=== PATIENT | female | born 1985 | race Hispanic/Latino ===

== ENCOUNTER → 2017-06-16 | Outpatient (CLI) | payer BC ==
[~2017-06-16] MED LIST: CEPH500C PO; IBUP-1773 PO; PREN1TAB19 PO
--- NOTE | 2017-06-16 16:05 | Diagnostic Imaging Report ---
INDICATION: anatomical evaluation. TECHNIQUE: Multiple real-time grayscale images were obtained over the gravid uterus. COMPARISON: None. FINDINGS: Cervical length is 4.4 cm. Fetus is currently in a cephalic presentation. Normal amount of amniotic fluid is present. The placenta is along the fundal left aspect of the uterus. No evidence for previa. cardiac activity at 155 beats per minute. Visualized anatomical structures are unremarkable. The spine however is not well demonstrated on the current study. Biometrical measurements are as follows: Biparietal 4.85 cm, age 20 weeks 5 days. Head circumference 18.02 cm, age 20 weeks 4 days. Abdominal circumference 16.31 cm, age 21 weeks 3 days. Femur length 3.55 cm, age 21 weeks 2 days. Sonographic estimate age: 21 weeks 0 days. Sonographic estimated date of delivery: 10-27-17. Estimated Weight: 406 gm (+/- 59 gm). LMP percentile: 94%. heart rate: 155 beats per minute. number: 1 of 1. IMPRESSION: Single viable intrauterine in a cephalic presentation. Sonographically estimated age is 21 weeks 0 days for an estimated date of delivery of October 27, 2017. No abnormalities are noted at this time. However, the spine cannot be well demonstrated. Dictated by: Dictated on workstation # [id number]
== END ==
LOC: RAD 13:16
PROVIDERS: ATTEND Family Medicine
DX: Z36 Encounter for antenatal screening of mother (principal); Z3A.21 21 weeks gestation of pregnancy
CPT/HCPCS: 76805

== ENCOUNTER 2017-10-30 19:02 | Inpatient (IN) | payer BC ==
[~2017-10-30] VITALS: Ht 152.4 cm; Wt 71.0 kg
[2017-10-30 19:23] VITALS: BP 110/73
[2017-10-30] MEDS ORDERED: MINERAL OIL CONCENTRATE 99.9% 15 ML UDC TOP PRN (19:30)
[2017-10-30] MEDS: D5 LR IV SOLUTION 1,000 ML IV SCH (19:45)
[2017-10-30 19:57] LABS: BASOPHILS % (AUTO) 0 % (0-10); EOSINOPHILS # (AUTO) 0.1 10^3/uL (0.0-0.3); EOSINOPHILS % (AUTO) 1 % (0-10); HEMATOCRIT 38 % (35-52); HEMOGLOBIN 12.9 G/DL (11.5-16.0); LYMPHOCYTES % (AUTO) 25 % (12-44); MEAN CORPUSCULAR HEMOGLOBIN 29 PG (25-34); MEAN CORPUSCULAR HGB CONC 34 G/DL (32-36); MEAN CORPUSCULAR VOLUME 86 FL (80-99); MEAN PLATELET VOLUME 12.5 FL (7.4-10.4); MONOCYTES # (AUTO) 0.5 X 10^3 (0.0-1.0); MONOCYTES % (AUTO) 6 % (0-12); NEUTROPHILS # (AUTO) 5.5 X 10^3 (1.8-7.8); NEUTROPHILS % (AUTO) 68 % (42-75); PLATELET COUNT 220 10^3/uL (130-400); RED BLOOD COUNT 4.43 10^6/uL (4.35-5.85); RED CELL DISTRIBUTION WIDTH 13.9 % (10.0-14.5); WHITE BLOOD COUNT 8.1 10^3/uL (4.3-11.0)
[2017-10-30] MEDS ORDERED: BUTORPHANOL INJ 2 MG/ML (STADOL) VIAL IV PRN (20:15)
[2017-10-30] MEDS ORDERED: DINOPROSTONE 10 MG (CERVIDIL) INSERT ONE (20:20)
[2017-10-30 20:28] VITALS: BP 109/67
[2017-10-30] MEDS ORDERED: DINOPROSTONE 10 MG (CERVIDIL) INSERT PV ONE (20:30)
[2017-10-30] MEDS ORDERED: CATHETER FLUSH 10 ML SYR IV SCH (22:00)
[2017-10-31] VITALS (14 sets, daily range): BP systolic 93–135; BP diastolic 57–72
[2017-10-31] MEDS: D5 LR IV SOLUTION 1,000 ML IV SCH ×2 (03:41→11:30)
--- NOTE | 2017-10-31 09:27 | History & Physical-OB ---
OB - Chief Complaint & HPI Date/Time Date of Admission: Date of Admission: Oct 30, 2017 at 7:15 pm Time Seen by Provider: 08:45 Chief Complaint/History OB-Reason for Admission/Chief: Induction of Labor Hx : 6 Hx Para: 3023 Expected Date of Delivery: Nov 02, 2017 Gestational Age in Weeks: 39 Gestational Age in Days: 5 History of Labs A pos, Hep B neg, RI, HIV neg, RPR NR, GC/chlamydia neg, GBS neg, 1 hour glucola nml. Allergies and Home Medications Allergies Coded Allergies: No Known Drug Allergies (Unverified , 12/22/10) Home Medications Vit/Iron Fumarate/FA 1 Each Tablet, 1 EACH PO DAILY, (Reported) OB - History Hx of Present Care: Yes Obstetrical Complications: None Medical Complications: None Obstetrical History Hx : 6 Hx Para: 3 Hx # Term Pregnancies: 3 Hx # Pregnancies: 0 Number of Living Children: 3 Hx Termination: No Hx Total # of Abortions (Spona: 2 Hx Multiple Gestation: No Hx Ectopic : No Hx Stillbirth: No Hx Complication: No Hx Induced Hypertens: No Hx Maternal Gestational Diabet: No Hx Hemorrhage: No Delivery History Hx Dystocia: No Hx Forceps Assisted Delivery: No Hx Vacuum Extraction Assisted: No Hx Placenta Abnormality: No Hx Distress: No Hx Large For Gestational Age I: No Hx Small for Gestational Age I: No Hx Section: No Hx Vaginal Delivery Post C-Sec: No Hx Blood Disorders: No Adverse Rxn to Tranfusion: No Patient Past Medical History Denies PMH/PSH Social History/Family History HIV/AIDS: No Recent Infectious Disease Expo: No Sexually Transmitted Disease: No Alcohol Use: Denies Use Recreational Drug Use: No Smoking Cessation: Never smoker Immunizations Hepatitis A: No Hepatitis B: No Tetanus Booster (TDap): Less than 5yrs Date of Influenza Vaccine: Jun 29, 2015 Rubella: immune RPR/VDRL: Negative GBS Status: Negative HBsAG: Negative OB - Admission Exam Physical Exam Vitals: Vital Signs 10/31/17 08:00 Temp 96.8 Pulse 79 Resp 18 B/P (MAP) 106/69 (81) O2 Delivery Room Air HEENT: NCAT Extremities: Other (varicosities) Cervical Dilatation: 7cm Effacement: 50% Station: -2 Membranes: Ruptured Amniotic Fluid: Clear Heart Rate: 140's Decelerations: Variable Decelerations Short Term Variability: Present Environmental Education Specialist Variability: Average (6-25) Labs Laboratory Tests Test 10/30/17 19:45 Range/Units White Blood Count 8.1 4.3-11.0 10^3/uL Red Blood Count 4.43 4.35-5.85 10^6/uL Hemoglobin 12.9 11.5-16.0 G/DL Hematocrit 38 35-52 % Mean Corpuscular Volume 86 80-99 FL Mean Corpuscular Hemoglobin 29 25-34 PG Mean Corpuscular Hemoglobin Concent 34 32-36 G/DL Red Cell Distribution Width 13.9 10.0-14.5 % Platelet Count 220 130-400 10^3/uL Mean Platelet Volume 12.5 H 7.4-10.4 FL Neutrophils (%) (Auto) 68 42-75 % Lymphocytes (%) (Auto) 25 12-44 % Monocytes (%) (Auto) 6 0-12 % Eosinophils (%) (Auto) 1 0-10 % Basophils (%) (Auto) 0 0-10 % Neutrophils # (Auto) 5.5 1.8-7.8 X 10^3 Lymphocytes # (Auto) 2.0 1.0-4.0 X 10^3 Monocytes # (Auto) 0.5 0.0-1.0 X 10^3 Eosinophils # (Auto) 0.1 0.0-0.3 10^3/uL Basophils # (Auto) 0.0 0.0-0.1 10^3/uL OB - Assessment/Plan/Diagnosis Assessment Assessment: induction of labor Plan Plan: Induction Induction Method: other (Cervidil placed last night per Dr. Loera plansDr. Loera out today, cervidil removed and advanced cervical dilation noted, will manage expectantly for now) LENCHO COMER MD Oct 31, 2017 9:27 am
[2017-10-31] MEDS ORDERED: OXYTOCIN/NORMAL SALINE 500 ML IV ONE (09:55)
[2017-10-31] MEDS ORDERED: MISOPROSTOL 200 MCG (CYTOTEC) TABLET ONE (10:10)
[2017-10-31] MEDS ORDERED: MISOPROSTOL 200 MCG (CYTOTEC) TABLET PO NR (10:15)
--- NOTE | 2017-10-31 10:22 | OB Labor & Delivery Record ---
Vag Delivery Note Vag Delivery Note Date of Delivery: 10/31/17 Preoperative Diagnosis: Marcos Rothman is a 32 yo /Para 6 / 3, Gestational Age (wks)39with 5 days Postoperative Diagnosis: Same Surgeon: LENCHO COMER Anesthesia: none Delivery Type: spontaneous vaginal delivery Findings: Viable female infant, apgars 9/9, weight 7#11 Lacerations: bilateral periurethral abrasions Intact placenta with 3 vessel cord. No nuchal cord, body cord or shoulder dystocia Cytotec 800 mcg placed for hemorrhage prophylaxis Estimated Blood Loss: 350 ml Complications: None Condition: Stable Description of Procedure: The patient is a who presented for IOL for approaching postdates. She was admitted and informed consent was obtained. Her labor course was unremarkable. She progressed to complete dilatation and began to push. She was then set up for delivery. The 's head was delivered atraumatically in the YANNA position. The shoulders and remainder of the 's body were then delivered without difficulty. Upon delivery, the infant was vigorous and placed on maternal abdomen. The cord was doubly clamped and cut and the infant was placed skin to skin with mother. An intact placenta with 3- vessel cord delivered via [place] and there was found to be moderate bleeding.~ Vigorous fundal massage was performed and the fundus was found to be boggy. IV oxytocin was given. Cytotec 800 mcg rectally given and fundus firm afterward with no bleeding. Examination of the vagina and perineum revealed a bilateral periurethral abrasion. Mom and baby were both in stable condition in the labor suite. Vitals - Labs Vital Signs - I&O Vital Signs Date Time Temp Pulse Resp B/P (MAP) Pulse Ox O2 Delivery O2 Flow Rate FiO2 10/31/17 08:00 96.8 79 18 106/69 (81) Room Air 10/31/17 03:45 96.8 74 18 102/61 (75) Room Air 10/31/17 00:33 98.4 79 18 108/65 (79) Room Air 10/30/17 20:28 97.6 83 18 109/67 (81) Room Air 10/30/17 19:23 86 18 110/73 (85) Room Air I & O 10/31/17 07:00 Intake Total 1200 ml Balance 1200 ml Labs Laboratory Tests 1/29/18 19:45: White Blood Count 8.1, Red Blood Count 4.43, Hemoglobin 12.9, Hematocrit 38, Mean Corpuscular Volume 86, Mean Corpuscular Hemoglobin 29, Mean Corpuscular Hemoglobin Concent 34, Red Cell Distribution Width 13.9, Platelet Count 220, Mean Platelet Volume 12.5H, Neutrophils (%) (Auto) 68, Lymphocytes (%) (Auto) 25 , Monocytes (%) (Auto) 6, Eosinophils (%) (Auto) 1, Basophils (%) (Auto) 0, Neutrophils # (Auto) 5.5, Lymphocytes # (Auto) 2.0, Monocytes # (Auto) 0.5, Eosinophils # (Auto) 0.1, Basophils # (Auto) 0.0 LENCHO COMER MD Oct 31, 2017 10:22 am
[2017-10-31] MEDS ORDERED: OXYTOCIN/NORMAL SALINE 500 ML IV SCH (11:06)
[2017-10-31] MEDS ORDERED: TETANUS,DIPTH,PERTUSS P/F (BOOSTRIX) 0.5 ML VIAL IM ONE (11:15)
[2017-10-31] MEDS ORDERED: MEASLES,MUMPS,RUBELLA 1 EA INJ SQ ONE (11:15)
[2017-10-31] MEDS: IBUPROFEN 600 MG (MOTRIN) TAB PO SCH (11:40)
[2017-10-31] MEDS ORDERED: CATHETER FLUSH 10 ML SYR IV SCH (14:00)
[2017-11-01] MEDS: IBUPROFEN 600 MG (MOTRIN) TAB PO SCH ×4 (00:08→13:25)
[2017-11-01 04:40] VITALS: BP 96/56
[2017-11-01 06:25] LABS: BASOPHILS % (AUTO) 0 % (0-10); EOSINOPHILS # (AUTO) 0.1 10^3/uL (0.0-0.3); EOSINOPHILS % (AUTO) 1 % (0-10); HEMATOCRIT 40 % (35-52); HEMOGLOBIN 13.4 G/DL (11.5-16.0); LYMPHOCYTES # (AUTO) 2.8 X 10^3 (1.0-4.0); LYMPHOCYTES % (AUTO) 25 % (12-44); MEAN CORPUSCULAR HEMOGLOBIN 29 PG (25-34); MEAN CORPUSCULAR HGB CONC 34 G/DL (32-36); MEAN CORPUSCULAR VOLUME 86 FL (80-99); MEAN PLATELET VOLUME 12.6 FL (7.4-10.4); MONOCYTES # (AUTO) 0.8 X 10^3 (0.0-1.0); MONOCYTES % (AUTO) 7 % (0-12); NEUTROPHILS # (AUTO) 7.4 X 10^3 (1.8-7.8); NEUTROPHILS % (AUTO) 67 % (42-75); PLATELET COUNT 205 10^3/uL (130-400); RED BLOOD COUNT 4.61 10^6/uL (4.35-5.85); RED CELL DISTRIBUTION WIDTH 14.1 % (10.0-14.5); WHITE BLOOD COUNT 11.1 10^3/uL (4.3-11.0)
[2017-11-01 08:00] VITALS: BP_SYST 2; BP_SYST 92; BP_DIAS 60
[2017-11-01] MEDS ORDERED: IBUP-1773 PO (09:41)
--- NOTE | 2017-11-01 09:45 | Discharge Instructions ---
Discharge Inst-Women's Serv Depart Medications New, Converted or Re-Newed RX: Transmitted to Pharmacy New Medications: Ibuprofen (Ibuprofen) 600 Mg Tablet 600 MG PO Q6H PRN for PAIN-MILD TO MODERATE, #60 TAB Continued Medications: Vit/Iron Fumarate/FA ( Vitamins Tablet) 1 Each Tablet 1 EACH PO DAILY, TAB Follow Up/Instructions Goal/Follow Up: Follow up with Dr. Loera in 6 weeks for visit. Activity Activity: Activity as Tolerated (avoid strenuous activity x 6 weeks) Driving Instructions: You May Drive Nothing Inside Vagina: No Douching, No [place], No Tampons Diet Discharge Diet: No Restrictions Symptoms to Report to : Swelling Increased, Fever Over 101 Degrees F, Pain/ Pressure in Chest, Pain/Pressure in Jaw, Vaginal Bleeding Increase, Cramps in Feet or Legs, Vaginal Discharge Foul, Dizziness/Fainting, Shortness of Breath For Any Problems or Questions: Contact Your Physician Copies To 1: KALANI LOERA MD, BETHANY N MD Nov 01, 2017 09:45
[2017-11-01 12:00] VITALS: BP 101/70
[2017-11-01] MEDS ORDERED: TETANUS,DIPTH,PERTUSS P/F (BOOSTRIX) 0.5 ML VIAL IM ONE (13:19)
--- NOTE | 2017-11-01 14:06 | Discharge Summary ---
Diagnosis/Chief Complaint Date of Admission Oct 30, 2017 at 7:15 pm Date of Discharge Nov 01, 2017 Admission Diagnosis Admission Diagnosis Term intrauterine at 39 weeks Induction of labor Discharge Diagnosis s/p spontaneous vaginal delivery at 39 weeks with no lacerations uncomplicated course Chief Complaint/HPI Chief Complaint/HPI 32 yo G6 now [id number] admitted for IOL at 39w4d for approaching postdates. Discharge Summary-Simple/Stand Procedures spontaneous vaginal delivery Discharge Physical Examination Allergies: Coded Allergies: No Known Drug Allergies (Unverified , 12/22/10) Vitals & I&Os Vital Sign - Last 12Hours Date Time Temp Pulse Resp B/P (MAP) Pulse Ox O2 Delivery O2 Flow Rate FiO2 11/01/17 12:00 97.8 77 18 101/70 (80) 98 Room Air General Appearance: Alert, No Acute Distress HEENT: Atraumatic Respiratory: Clear to Auscultation, Normal Air Movement Cardiovascular: Regular Rate, No Murmurs Abdominal: Other (fundus firm at umbilicus, nontender) Extremities: No Edema Neuro: Normal Speech Psych/Mental Status: Mental Status NL Hospital Course See final discharge diagnosis. Labs Laboratory Tests 11/01/17 05:54 Discharge Instructions to patient/family Please see electronic discharge instructions given to patient. Discharge Medications Reviewed and agree with Discharge Medication list on patient's Discharge Instruction sheet Clinical Quality Measures DVT/VTE Risk/Contraindication: Risk Factor Score Per Nursin RFS Level Per Nursing on Admit: 1=Low/No VTE PPX Copy Copies To 1: KALANI [place] MD, BETHANY N MD Nov 01, 2017 2:06 pm
== END 2017-11-01 15:20 | disposition home or self-care (01) | DRG 774 ==
LOC: WSo 19:02 → LDRP 19:03 → WSo 19:10 → LDRP 19:15
PROVIDERS: ADMIT Family Medicine; ATTEND Family Medicine
PROC: 10E0XZZ Delivery of Products of Conception, External Approach (ICD-10-PCS; principal; 2017-10-31)
DX: O72.1 Other immediate postpartum hemorrhage (principal); Z3A.39 39 weeks gestation of pregnancy; Z37.0 Single live birth; Z23 Encounter for immunization
CPT/HCPCS: 36415; 85025; 86850; 86900; 86901; 90715